=== PATIENT | male | born 1955 | race Hispanic/Latino ===

== ENCOUNTER 2017-06-24 15:56 | Emergency (ER) | payer OTHER ==
[2017-06-24] MEDS ORDERED: Ibuprofen 800 MG TAB ONE (16:52)
--- NOTE | 2017-06-24 17:22 | RAD ---
3 VIEWS LEFT ANKLE: Date: 06/24/17 HISTORY: Trauma. COMPARISON: None. FINDINGS: There is soft tissue swelling, lateral greater than medial. No fracture. No cortical irregular or per iosteal reaction. Chronic changes are noted. IMPRESSION: Nonspecific soft tissue swelling. No definite fracture. If there is pain or point tenderness, immobil ization with follow-up imaging in 7-10 days advised. POS: [facility]
== END 2017-06-24 17:11 | disposition home or self-care (01) ==
LOC: SCSER 15:56
DX: S93.402A Sprain of unspecified ligament of left ankle, initial encounter (principal); R73.03 Prediabetes; I10 Essential (primary) hypertension; Z87.891 Personal history of nicotine dependence; X50.1XXA Overexertion from prolonged static or awkward postures, initial encounter; Y93.67 Activity, basketball

== ENCOUNTER 2017-07-04 08:32 | Outpatient (CLI) | payer OTHER ==
[2017-07-04] MEDS ORDERED: Iopamidol 370 76% 100 ML VIAL ONE (13:11)
== END 2017-07-04 08:33 | disposition home or self-care (01) ==
LOC: BICCT 08:32
PROVIDERS: ATTEND Urology
DX: C64.2 Malignant neoplasm of left kidney, except renal pelvis (principal); R05 Cough; K76.0 Fatty (change of) liver, not elsewhere classified; Z98.890 Other specified postprocedural states
CPT/HCPCS: 36415; 71046; 74170; 80069; 81001; G0103

== ENCOUNTER 2018-03-10 16:23 | Emergency (ER) | payer OTHER ==
[2018-03-10] MEDS ORDERED: Ketorolac Tromethamine 60 MG/2 ML VIAL ONE (17:20)
[2018-03-10] MEDS ORDERED: traMADol HCl 50 MG TAB ONE (17:20)
== END 2018-03-10 18:02 | disposition home or self-care (01) ==
LOC: ERS 16:23
DX: M54.41 Lumbago with sciatica, right side (principal); I10 Essential (primary) hypertension; Z87.891 Personal history of nicotine dependence; Z79.899 Other long term (current) drug therapy; Z79.82 Long term (current) use of aspirin; Z79.84 Long term (current) use of oral hypoglycemic drugs
CPT/HCPCS: 96372; J1885

== ENCOUNTER 2018-03-15 07:44 | Outpatient (CLI) | payer OTHER ==
--- NOTE | 2018-03-15 09:29 | MRI ---
LUMBAR SPINE MRI WITHOUT CONTRAST: Date: 03/15/18 HISTORY: Lumbar radiculopathy. Right-sided sciatica. COMPARISON: None. FINDINGS: Appropriate T1 marrow signal intensity of the lumbar vertebra. Vertebral body height is maintained. N o fracture. No significant STIR hyperintensity to suggest edema or ligamentous injury. Minimal Schmorl's nodes along the inferior end plate of L1, superior end plate of L4, and superior en d plate of L5. Symmetric signal intensity of the psoas muscles. T2 hyperintensities in the left and right kidney may represent cysts. Conus medullaris terminates at the superior aspect of L1. T12-L1: Adequate disc hydration. No significant central canal stenosis. Neural foramina are patent. L1-L2: Adequate disc hydration. No significant posterior disc abnormality. No significant central ca nal stenosis. Neural foramina are patent. L2-L3: Adequate disc hydration. No significant posterior disc abnormality. No significant central ca nal stenosis. Foramina are patent. L3-L4: Adequate disc hydration. Generalized disc bulge, ligamentum flavum thickening and facet hyper trophy result in mild central canal stenosis. Mild bilateral foraminal narrowing. L4-L5: Desiccation with mild loss of disc space height. Generalized disc bulge, ligamentum flavum th ickening, and facet hypertrophy result in moderate central canal stenosis. There is a T2 and STIR hyp erintensity suggesting a posterior annular fissure along the midline and right subarticular aspect of the disc space. Moderate right and left foraminal narrowing. L5-S1: Desiccation with mild loss of disc space height. There is a generalized disc bulge with a charles tral and left subarticular component. There appears to be a left laminectomy defect. There is likely scar tissue in the left subarticular zone encompassing the traversing left S1 nerve root. Postcontras t imaging would be beneficial. Overall, mild stenosis of the thecal sac. Moderate to severe bilateral neural foraminal narrowing. IMPRESSION: 1. Findings suggesting postoperative changes in the left aspect of the disc at L5-S1. There is presu med scar tissue in the left subarticular zone encompassing the traversing left S1 nerve root. Conside r post contrast imaging. 2. Varying degrees of central canal stenosis and foraminal narrowing as detailed above. There is mod erate to severe central canal stenosis at L4-L5. POS: [facility]
== END 2018-03-15 07:45 | disposition home or self-care (01) ==
LOC: SCSMRI 07:44
PROVIDERS: ATTEND Family Medicine
DX: M54.16 Radiculopathy, lumbar region (principal); M54.31 Sciatica, right side; M48.07 Spinal stenosis, lumbosacral region; M99.83 Other biomechanical lesions of lumbar region; M99.84 Other biomechanical lesions of sacral region; M48.062 Spinal stenosis, lumbar region with neurogenic claudication
CPT/HCPCS: 72148

== ENCOUNTER 2018-07-02 07:21 | Outpatient (CLI) | payer OTHER ==
--- NOTE | 2018-07-02 08:54 | CT ---
CT ABDOMEN WITH AND WITHOUT CONTRAST: HISTORY: C64.2, clear cell carcinoma of left kidney, resected four years ago. COMPARISON: 05/23/2016 07/04/2017 TECHNIQUE: With and without multiphase CT examination of the abdomen is performed. FINDINGS: The lung bases are clear. No pulmonary metastasis. Fatty changes in the liver with some fatty spari ng adjacent to the gallbladder without evidence for gallstones or ductal dilatation. Bilateral renal cysts. Postoperative changes involving the upper pole of the left kidney. No evidence for retroper itoneal adenopathy. No abnormal fluid collection. No evidence for obstruction. IMPRESSION: 1. Stable postoperative changes, left kidney, with some bilateral renal cysts and [id number] cterize hypodensities, presumed to be small cysts. 2. Fatty changes of the liver. 3. No new process. 4. No evidence for metastasis. POS: [facility]
[2018-07-02] MEDS ORDERED: Iopamidol 370 76% 75 ML VIAL FS ONE (09:00)
== END 2018-07-02 07:22 | disposition home or self-care (01) ==
LOC: SCSCT 07:21
PROVIDERS: ATTEND Urology
DX: C64.2 Malignant neoplasm of left kidney, except renal pelvis (principal); N28.1 Cyst of kidney, acquired; K76.0 Fatty (change of) liver, not elsewhere classified; Z98.890 Other specified postprocedural states
CPT/HCPCS: 74170; 82565

== ENCOUNTER 2018-08-12 16:50 | Emergency (ER) | payer OTHER ==
--- NOTE | 2018-08-12 18:42 | RAD ---
RIGHT RIBS GREATER THAN/EQUAL TWO VIEWS PA CHEST: History: Fall. Pain. Comparison: None. FINDINGS: The lungs are clear. No pneumothorax. Heart size upper limits of normal. Left upper lobe calcified granuloma. There is a right nondisplaced anterior 6th rib fracture and poss ibly fractures of 7th and 8th ribs. IMPRESSION: Nondisplaced right 6th and possibly 7th and 8th ribs. POS: [facility]
== END 2018-08-12 18:13 | disposition home or self-care (01) ==
LOC: SCSER 16:50
DX: S22.31XA Fracture of one rib, right side, initial encounter for closed fracture (principal); I10 Essential (primary) hypertension; Z87.891 Personal history of nicotine dependence; W19.XXXA Unspecified fall, initial encounter

== ENCOUNTER 2018-11-12 11:57 | Outpatient (CLI) | payer OTHER ==
--- NOTE | 2018-11-12 14:51 | MRI ---
MRI LEFT SHOULDER: 11/12/18 PROVIDED CLINICAL HISTORY: Left shoulder pain. FINDINGS: There is full thickness, full width retracted tearing of the supraspinatus tendon with retraction to the level about the acromioclavicular joint. The components of the rotator cuff appear otherwise int act. There is increased signal intensity on fluid sensitive sequence and thickening of the genu of th e long head of the biceps tendon suggesting tendinosis and/or nonattenuating interstitial partial tea ring. There is a moderate glenohumeral joint effusion, freely communicating with the subacromial subdeltoid bursa. The glenoid labrum and glenohumeral articular cartilage appear intact. Acromioclavicular joint osteoarthrosis is noted with mass effect upon the subjacent supraspinatus. Th ere is mild supraspinatus muscular volume loss without fatty infiltration. Regional marrow and muscul ar signal appear normal. IMPRESSION: 1. Full thickness, full width retracted tear of the supraspinatus tendon. 2. Moderate glenohumeral joint effusion. 3. Acromioclavicular joint osteoarthrosis. 4. Tendinosis or nonattenuating interstitial tearing of the genu of long head biceps tendon. POS: [facility]
== END 2018-11-12 11:58 | disposition home or self-care (01) ==
LOC: SCSMRI 11:57
PROVIDERS: ATTEND Orthopaedic Surgery
DX: M75.102 Unspecified rotator cuff tear or rupture of left shoulder, not specified as traumatic (principal); M19.012 Primary osteoarthritis, left shoulder; M25.412 Effusion, left shoulder

== ENCOUNTER 2020-10-21 06:48 | Outpatient (CLI) | payer MEDICARE, OTHER | END 2020-10-21 06:49 | disposition home or self-care (01) | LOC: BICMRI 06:48 | DX: S83.232A Complex tear of medial meniscus, current injury, left knee, initial encounter (principal); M71.22 Synovial cyst of popliteal space [Baker], left knee; M94.262 Chondromalacia, left knee ==

== ENCOUNTER 2021-04-04 07:54 | Outpatient (CLI) | payer MEDICARE, OTHER | END 2021-04-04 07:55 | disposition home or self-care (01) | LOC: ULT 07:54 | PROVIDERS: ATTEND Family Medicine | DX: R10.11 Right upper quadrant pain (principal); K76.0 Fatty (change of) liver, not elsewhere classified | CPT/HCPCS: 76705 ==

== ENCOUNTER 2021-06-18 05:47 | Inpatient (IN) | payer MEDICARE ==
[2021-06-18 06:48] LABS: Hemoglobin 15.5 g/dL (14.0-18.0); Mean Corpuscular HGB CONC 34.3 g/dL (32.0-36.0); Mean Corpuscular Volume 93.5 fL (78.0-98.0); Mean Platelet Volume 8.9 fL (7.4-10.4); Platelet Count 164 thou/uL (130-400); RBC Distribution Width 12.8 % (11.5-14.5); Red Blood Cell (RBC) Count 4.85 mill/uL (4.70-6.10); White Blood Cell (WBC) Count 16.7 thou/uL (4.8-10.8)
[2021-06-18] MEDS ORDERED: cefTRIAXone\\ROCEPHIN 1 GM VIAL ONE (07:09)
[2021-06-18 07:16] LABS: Band 44 % (5-11); Lymphocytes 6 % (21-51); MDiff Complete? YES; Metamyelocyte 1 % (0-0); Monocytes 1 % (0-10); Neutrophil 46 % (42-75); Nucleated RBC 1 % (0); Platelet Morphology Comment Appears Adequate; Polychromasia SLIGHT = 2-3 cells (100X) (0-2/hpf); Reactive Lymphocytes 2 % (0-10); Toxic Granulation SLIGHT; Vacuoles SLIGHT
[2021-06-18 08:34] LABS: ALT (SGPT) 34 U/L (8-55); AST (SGOT) 23 U/L (5-34); Albumin 3.4 g/dL (3.4-4.8); Alkaline Phosphatase 105 U/L (40-110); Anion Gap 19 mmol/L (10-20); BUN (Urea Nitrogen) 22 mg/dL (8.4-25.7); Bilirubin, Total 1.8 mg/dL (0.2-1.2); Calc. Creatinine Clearance 0 mL/min (70-130); Calcium 10.2 mg/dL (7.8-10.44); Carbon Dioxide 21 mmol/L (23-31); Chloride 96 mmol/L (98-107); Globulin 3.9 g/dL (2.4-3.5); Glucose 316 mg/dL (80-115); Potassium 3.4 mmol/L (3.5-5.1); Protein, Total 7.3 g/dL (5.8-8.1); Sodium 133 mmol/L (136-145)
[2021-06-18 10:09] LABS: INR-International Normal Ratio 1.3; Prothrombin Time 16.1 sec (12.0-14.7)
[2021-06-18 10:11] LABS: PTT 53.7 sec (22.9-36.1)
[2021-06-18 10:14] LABS: Lactic Acid 2.3 mmol/L (0.5-2.2)
[2021-06-18] MEDS ORDERED: Iopamidol-370 76% 500 ML 1 ML ONE (10:28)
[2021-06-18] MEDS ORDERED: Aspirin Chewable 81 MG TAB ONE (11:13)
[2021-06-18] MEDS ORDERED: Enoxaparin Sodium 100 MG/ML SYRINGE ONE (11:13)
[2021-06-18] MEDS ORDERED: Guaifenesin DM 100-10/5 ML UDCUP PO PRN (11:13)
[2021-06-18] MEDS ORDERED: Azithromycin 500 MG VIAL ONE (11:13)
[2021-06-18 11:42] LABS: Troponin I Less than 0.010 ng/mL (< 0.028)
[2021-06-18] MEDS ORDERED: Dextrose 50% Abboject 50 ML SYRINGE SLOW IVP PRN (13:11)
[2021-06-18] MEDS ORDERED: Dextrose 5% in Water 1,000 ML IV PRN (13:11)
[2021-06-18] MEDS ORDERED: Potassium Chloride 20 MEQ TAB PO SCH (13:30)
[2021-06-18 13:45] LABS: Magnesium 1.6 mg/dL (1.6-2.6)
[2021-06-18 13:51] LABS: SARS-CoV-2 NAA Rapid Test Not Detected (NotDetected)
[2021-06-18] MEDS: Lactated Ringer's 1,000 ML IV SCH (13:51)
[2021-06-18] MEDS ORDERED: Potassium Chloride 20 MEQ TAB ONE (15:55)
[2021-06-18 17:36] VITALS: BMI 31.4
[2021-06-18] MEDS ORDERED: Lactated Ringer's 1,000 ML IV SCH (17:45)
[2021-06-18] MEDS: HumaLOG 300 UNITS/3 ML VIAL SC PRN ×2 (18:09→20:33)
[2021-06-18 19:29] LABS: Legionella Urinary Ag Negative (Negative)
[2021-06-18 19:30] LABS: Strep pneumo Urine Ag NEGATIVE (NEGATIVE)
[2021-06-18] MEDS ORDERED: Lactated Ringer's 500 ML IV SCH (19:30)
[2021-06-18] MEDS ORDERED: Metoprolol Tartrate 5 MG/5 ML VIAL IVP SCH (20:18)
[2021-06-18] MEDS: Apixaban 5 MG TAB PO SCH (20:33)
[2021-06-18] MEDS: Atorvastatin Calcium 20 MG TAB PO SCH (20:33)
[2021-06-19] MEDS: Lactated Ringer's 1,000 ML IV SCH ×3 (00:20→17:53)
[2021-06-19 05:25] LABS: #Eosinphils 0.2 thou/uL (0.0-0.7); #Lymphocytes 2.5 thou/uL (1.20-3.40); #Monocytes 0.5 thou/uL (0.11-0.59); #Neutrophils 6.9 thou/uL (1.40-6.50); %Basophils 0.1 % (0.0-1.0); %Eosinophils 1.7 % (0.0-10.0); %Lymphocytes 25.2 % (21.0-51.0); %Monocytes 4.8 % (0.0-10.0); %Neutrophils 68.2 % (42.0-75.0); Hemoglobin 13.4 g/dL (14.0-18.0); Mean Corpuscular HGB CONC 34.5 g/dL (32.0-36.0); Mean Corpuscular Hemoglobin 32.5 pg (27.0-31.0); Mean Corpuscular Volume 94.3 fL (78.0-98.0); Mean Platelet Volume 8.7 fL (7.4-10.4); Platelet Count 160 thou/uL (130-400); RBC Distribution Width 12.8 % (11.5-14.5); Red Blood Cell (RBC) Count 4.12 mill/uL (4.70-6.10); White Blood Cell (WBC) Count 10.1 thou/uL (4.8-10.8)
[2021-06-19 05:49] LABS: ALT (SGPT) 36 U/L (8-55); AST (SGOT) 40 U/L (5-34); Albumin 2.8 g/dL (3.4-4.8); Alkaline Phosphatase 80 U/L (40-110); Anion Gap 13 mmol/L (10-20); BUN (Urea Nitrogen) 15 mg/dL (8.4-25.7); Bilirubin, Total 1.1 mg/dL (0.2-1.2); Calc. Creatinine Clearance 117 mL/min (70-130); Calcium 9.1 mg/dL (7.8-10.44); Carbon Dioxide 22 mmol/L (23-31); Chloride 102 mmol/L (98-107); Globulin 3.3 g/dL (2.4-3.5); Glucose 208 mg/dL (80-115); Potassium 3.4 mmol/L (3.5-5.1); Protein, Total 6.1 g/dL (5.8-8.1); Sodium 134 mmol/L (136-145)
[2021-06-19] MEDS: cefTRIAXone\\ROCEPHIN 1 GM in Sodium Chloride 0.9% 100 ML IVPB SCH (06:18)
[2021-06-19] MEDS: HumaLOG 300 UNITS/3 ML VIAL SC PRN ×3 (07:27→21:37)
[2021-06-19] MEDS ORDERED: Potassium Chloride 20 MEQ TAB PO SCH (08:00)
[2021-06-19] MEDS ORDERED: Acetaminophen 500 MG TAB PO SCH (08:00)
[2021-06-19] MEDS: Valsartan 80 MG TAB PO SCH ×2 (08:48→08:54)
[2021-06-19] MEDS: Multivitamin W/ Minerals 1 TAB PO SCH (08:48)
[2021-06-19] MEDS: Apixaban 5 MG TAB PO SCH ×2 (08:49→21:37)
[2021-06-19] MEDS: Amlodipine 10 MG TAB PO SCH ×2 (08:49→08:53)
[2021-06-19] MEDS ORDERED: VALSARTAN PO SCH (09:00)
[2021-06-19] MEDS ORDERED: FLU VACC QS2021-22(65YR UP)/PF 240 MCG/0.7 ML SYRINGE IM ONE (09:00)
[2021-06-19] MEDS ORDERED: Aspirin Chewable 81 MG TAB PO SCH (09:00)
[2021-06-19] MEDS ORDERED: AMLODIPINE PO SCH (09:00)
[2021-06-19] MEDS: Lantus 1000 UNITS/10 ML VIAL SC SCH (09:05)
[2021-06-19] MEDS: Azithromycin 500 MG in Sodium Chloride 0.9% 250 ML 250 ML IVPB SCH (12:16)
[2021-06-19 14:28] LABS: Phosphorus 2.3 mg/dL (2.3-4.7)
[2021-06-19 14:30] LABS: Magnesium 1.6 mg/dL (1.6-2.6)
[2021-06-19] MEDS: Atorvastatin Calcium 20 MG TAB PO SCH (21:37)
[2021-06-20] MEDS: Lactated Ringer's 1,000 ML IV SCH (04:53)
[2021-06-20 05:59] LABS: #Eosinphils 0.4 thou/uL (0.0-0.7); #Lymphocytes 2.4 thou/uL (1.20-3.40); #Monocytes 0.5 thou/uL (0.11-0.59); #Neutrophils 3.6 thou/uL (1.40-6.50); %Basophils 0.4 % (0.0-1.0); %Eosinophils 6.1 % (0.0-10.0); %Lymphocytes 34.7 % (21.0-51.0); %Monocytes 6.6 % (0.0-10.0); %Neutrophils 52.2 % (42.0-75.0); Hemoglobin 14.8 g/dL (14.0-18.0); Mean Corpuscular HGB CONC 33.3 g/dL (32.0-36.0); Mean Corpuscular Hemoglobin 31.9 pg (27.0-31.0); Mean Corpuscular Volume 95.6 fL (78.0-98.0); Mean Platelet Volume 8.7 fL (7.4-10.4); Platelet Count 161 thou/uL (130-400); RBC Distribution Width 12.9 % (11.5-14.5); Red Blood Cell (RBC) Count 4.65 mill/uL (4.70-6.10); White Blood Cell (WBC) Count 6.8 thou/uL (4.8-10.8)
[2021-06-20] MEDS: HumaLOG 300 UNITS/3 ML VIAL SC PRN ×2 (06:17→11:15)
[2021-06-20 06:22] LABS: ALT (SGPT) 42 U/L (8-55); AST (SGOT) 42 U/L (5-34); Albumin 3.1 g/dL (3.4-4.8); Alkaline Phosphatase 66 U/L (40-110); Anion Gap 13 mmol/L (10-20); BUN (Urea Nitrogen) 14 mg/dL (8.4-25.7); Bilirubin, Total 0.9 mg/dL (0.2-1.2); Calc. Creatinine Clearance 117 mL/min (70-130); Calcium 9.2 mg/dL (7.8-10.44); Carbon Dioxide 21 mmol/L (23-31); Chloride 102 mmol/L (98-107); Globulin 3.6 g/dL (2.4-3.5); Glucose 217 mg/dL (80-115); Potassium 3.6 mmol/L (3.5-5.1); Protein, Total 6.7 g/dL (5.8-8.1); Sodium 132 mmol/L (136-145)
[2021-06-20] MEDS ORDERED: Acetaminophen 500 MG TAB PO SCH (09:00)
[2021-06-20] MEDS: cefTRIAXone\\ROCEPHIN 1 GM in Sodium Chloride 0.9% 100 ML IVPB SCH (09:16)
[2021-06-20] MEDS: Amlodipine 10 MG TAB PO SCH (09:17)
[2021-06-20] MEDS: Valsartan 80 MG TAB PO SCH (09:17)
[2021-06-20] MEDS: Multivitamin W/ Minerals 1 TAB PO SCH (09:18)
[2021-06-20] MEDS: Apixaban 5 MG TAB PO SCH (09:18)
[2021-06-20] MEDS: Lantus 1000 UNITS/10 ML VIAL SC SCH (09:18)
[2021-06-20] MEDS: Azithromycin 500 MG in Sodium Chloride 0.9% 250 ML 250 ML IVPB SCH (10:09)
[2021-06-20 11:11] VITALS: BP 114/90; TEMP 97.2
== END 2021-06-20 15:45 | disposition home or self-care (01) | DRG 871 ==
LOC: ERS 05:47 → ERHOLD 10:07 → 2NO 17:30 → OBSVTOIN 06-19 10:42
PROVIDERS: ADMIT Student in an Organized Health Care Education/Training Program; ATTEND Student in an Organized Health Care Education/Training Program
DX: A41.9 Sepsis, unspecified organism (principal); J18.9 Pneumonia, unspecified organism; J90 Pleural effusion, not elsewhere classified; N17.9 Acute kidney failure, unspecified; I10 Essential (primary) hypertension; I48.91 Unspecified atrial fibrillation; E11.65 Type 2 diabetes mellitus with hyperglycemia; E78.5 Hyperlipidemia, unspecified; F41.9 Anxiety disorder, unspecified; Z20.822 Contact with and (suspected) exposure to COVID-19; Z88.8 Allergy status to other drugs, medicaments and biological substances; Z79.899 Other long term (current) drug therapy; Z85.528 Personal history of other malignant neoplasm of kidney; Z90.49 Acquired absence of other specified parts of digestive tract; Z87.891 Personal history of nicotine dependence; Z98.890 Other specified postprocedural states
CPT/HCPCS: 0240U; 36415; 36416; 71045; 71275; 80053; 83036; 83605; 83735; 84100; 84145; 84443; 84484; 85025; 85610; 85730; 87040; 87449; 87899; 93005; 93010; 93306; 96375; 96376; G0378; J0456; J0696; J1650; J1815; J3475; J3490; J7050; J7120; Q9967

== ENCOUNTER 2023-03-13 13:52 | Outpatient (CLI) | payer MEDICARE, OTHER | END 2023-03-13 13:53 | disposition home or self-care (01) | LOC: SCSMRI 13:52 | PROVIDERS: ATTEND Orthopaedic Surgery | DX: M25.562 Pain in left knee (principal); S83.232A Complex tear of medial meniscus, current injury, left knee, initial encounter; S83.282A Other tear of lateral meniscus, current injury, left knee, initial encounter; M22.42 Chondromalacia patellae, left knee; M76.52 Patellar tendinitis, left knee ==